=== PATIENT | female | born 1960 | race African-American/Black ===

== ENCOUNTER 2019-01-30 13:33 | Emergency (ER) ==
[2019-01-30 13:43] VITALS: BP 147/84; TEMP 97.9; BMI 24.3
--- NOTE | 2019-01-30 14:22 | CT ---
EXAM: CT of the abdomen pelvis without contrast History: Umbilical pain and swelling. Comparison: None available. Technique: Multiplanar CT images through the abdomen pelvis were obtained without the administration of IV contrast Findings: Lung bases are clear. No acute osseous abnormalities. Severe degenerative disc disease a t L5-S1. Gallbladder is not well distended. No discrete gallstones identified by CT. Long right lobe of the liver. Spleen is unremarkable. No bhavya peripancreatic inflammation. Evaluation of the pancreatic parenchyma is limited due to lack of contrast administration. Adrenal glands are unremarkable. Blad sanam is not well distended. No focal bladder wall thickening. The appendix is not well seen. There are no secondary signs of appendicitis. No evidence for bowel obstruction. No abdominal aortic aneu rysm. Evaluation for lymph nodes is limited due to the lack of contrast administration. No free air and no ascites. No renal stones and no hydronephrosis. No perinephric stranding. Small fat-contai cecy umbilical hernia measuring 1.4 cm with mild skin thickening. There is no inflammation or absces s. The uterus is not well seen. Atherosclerotic vascular calcifications. Impression: 1. No acute intra-abdominal or pelvic process identified within limitations of a noncontrast study. 2. Small fat-containing umbilical hernia with mild skin thickening. No abscess is seen. 3. Severe degenerative disc disease at L5-S1. 4. Long right lobe of the liver could represent mild hepatomegaly or a Ana's normal variant.
--- NOTE | 2019-01-30 14:52 | ED.PDOC ---
General ED Provider: Dr. OLMAN OLIVO Chief Complaint: Non-specific Complaint Stated Complaint: periumblical wound and irritation Time Seen by Physician: 13:35 (seen with teresa photos attached ) Information Source: Patient Exam Limitations: No limitations Primary Care Provider: LYDIA STANLEY Nursing and Triage Documentation Reviewed and Agree: Yes Does patient meet sepsis criteria?: No System Inflammatory Response Syndrome: Not Applicable Sepsis Protocol: For patient's 13 years and over: Temp is 96.8 and below OR 101 and greater Pulse >90 BPM Resp >20/minute Acutely Altered Mental Status Are patient's symptoms suggestive of a new infection, such as: -Pneumonia -Skin, Soft Tissue -Endocarditis -UTI -Bone, Joint Infection -Implantable Device -Acute Abdominal Infection -Wound Infection -Meningitis -Blood Stream Catheter Infection -Unknown Skin Complaint Exam - Skin/Soft Tissue Complaint/Exam Onset/Duration: weeks Symptoms Are: Still present Timing: Constant Initial Severity: Mild Current Severity: Mild Character: Reports: Redness Aggravating: Reports: None Alleviating: Reports: None Associated Signs and Symptoms: Denies: Fever, Chills, Itching, Drainage, Bruising, Tenderness, Red streaks, Joint swelling Related Surgical History: Reports: None Recent Exposure to Others w/Similar Symptoms: No Skin Findings: Present: Other (cellulitis) Differential Diagnoses: Abscess Review of Systems - Review Of Systems Constitutional: Reports: No symptoms Eyes: Reports: No symptoms Ears, Nose, Mouth, Throat: Reports: No symptoms Respiratory: Reports: No symptoms Cardiac: Reports: No symptoms GI: Reports: No symptoms : Reports: No symptoms Musculoskeletal: Reports: No symptoms Skin: Reports: Rash Neurological: Reports: No symptoms Endocrine: Reports: No symptoms Hematologic/Lymphatic: Reports: No symptoms All Other Systems: Reviewed and Negative Past Medical History - Past Medical History Previously Healthy: Yes Endocrine: Reports: None Cardiovascular: Reports: Hypertension Respiratory: Reports: None Hematological: Reports: None Gastrointestinal: Reports: None Genitourinary: Reports: None Neuro/Psych: Reports: None Musculoskeletal: Reports: None Cancer: Reports: None Last Menstrual Period: years ago - Surgical History General Surgical History: Reports: None - Family History Family History: Reports: None - Social History Smoking Status: Current every day smoker Hx Substance Use: No Alcohol Screening: Occasionally - Immunizations Tetanus Shot up to Date: Yes Physical Exam - Physical Exam Appearance: Well-appearing, No pain distress, Well-nourished Eyes: ROSE, EOMI, Conjunctiva clear ENT: Ears normal, Nose normal, Oropharynx normal Respiratory: Airway patent, Breath sounds clear, Breath sounds equal, Respirations nonlabored Cardiovascular: RRR, Pulses normal, No rub, No murmur GI/: Soft, Nontender, No masses, Bowel sounds normal, No Organomegaly Musculoskeletal: Normal strength, ROM intact, No edema, No calf tenderness Skin: Warm, Dry (rash periumblical see photo) Neurological: Sensation intact, Motor intact, Reflexes intact, Cranial nerves intact, Alert, Oriented Psychiatric: Affect appropriate, Mood appropriate Critical Care Note - Critical Care Note Total Time (mins): 0 Course - Course Hematology/Chemistry: 01/30/19 13:59 01/30/19 13:59 Orders, Labs, Meds: Lab Review 01/30/19 01/30/19 01/30/19 13:56 13:56 13:59 WBC 7.57 RBC 4.39 Hgb 12.3 Hct 38.0 MCV 86.6 MCH 28.0 MCHC 32.4 RDW Coeff of Yuri 13.2 Plt Count 331 Immature Gran % (Auto) 0.1 Neut % (Auto) 43.2 Lymph % (Auto) 44.1 Thomas % (Auto) 9.8 Eos % (Auto) 2.4 Baso % (Auto) 0.4 Immature Gran # (Auto) 0.0 Neut # (Auto) 3.3 Lymph # (Auto) 3.3 Thomas # (Auto) 0.7 Eos # (Auto) 0.2 Baso # (Auto) 0.0 Sodium Potassium Chloride Carbon Dioxide Anion Gap BUN Creatinine Estimated GFR (MDRD) BUN/Creatinine Ratio Glucose Calcium Total Bilirubin AST ALT Alkaline Phosphatase Total Protein Albumin Globulin Albumin/Globulin Ratio Urine Color Yellow Urine Clarity Slightly Urine pH 5.5 Ur Specific [place] >=1.030 Urine Protein Negative Urine Glucose (UA) Negative Urine Ketones Negative Urine Blood Negative Urine Nitrite Positive Urine Bilirubin Negative Urine Urobilinogen 0.2 Ur Leukocyte Esterase Negative Urine Microscopic WBC 0-2 Ur Squamous Epith Cells 2-5 Calcium Oxalate Crystal 1+ Urine Bacteria 2+ Urine Opiates Screen Positive Ur Oxycodone Screen Negative Urine Methadone Screen Negative Ur Propoxyphene Screen Negative Ur Barbiturates Screen Negative U Tricyclic Antidepress Negative Ur Phencyclidine Scrn Negative Ur Amphetamine Screen Positive U Methamphetamines Scrn Positive U Benzodiazepines Scrn Positive Urine Cocaine Screen Negative U Cannabinoids Screen Negative 01/30/19 13:59 WBC RBC Hgb Hct MCV MCH MCHC RDW Coeff of Yuri Plt Count Immature Gran % (Auto) Neut % (Auto) Lymph % (Auto) Thomas % (Auto) Eos % (Auto) Baso % (Auto) Immature Gran # (Auto) Neut # (Auto) Lymph # (Auto) Thomas # (Auto) Eos # (Auto) Baso # (Auto) Sodium 139.2 Potassium 3.81 Chloride 100.7 Carbon Dioxide 27.5 Anion Gap 14.81 BUN 17.8 H Creatinine 1.04 Estimated GFR (MDRD) 66.00 BUN/Creatinine Ratio 17.11 Glucose 140.6 H Calcium 9.83 Total Bilirubin 0.49 AST 61.6 H ALT 62.4 H Alkaline Phosphatase 63.8 Total Protein 8.54 H Albumin 4.85 Globulin 3.69 Albumin/Globulin Ratio 1.31 Urine Color Urine Clarity Urine pH Ur Specific [place] Urine Protein Urine Glucose (UA) Urine Ketones Urine Blood Urine Nitrite Urine Bilirubin Urine Urobilinogen Ur Leukocyte Esterase Urine Microscopic WBC Ur Squamous Epith Cells Calcium Oxalate Crystal Urine Bacteria Urine Opiates Screen Ur Oxycodone Screen Urine Methadone Screen Ur Propoxyphene Screen Ur Barbiturates Screen U Tricyclic Antidepress Ur Phencyclidine Scrn Ur Amphetamine Screen U Methamphetamines Scrn U Benzodiazepines Scrn Urine Cocaine Screen U Cannabinoids Screen Orders Category Date Time Status CBC W/ AUTO DIFF Stat LAB 01/30/19 13:51 Ordered COMPREHENSIVE METABOLIC PANEL Stat LAB 01/30/19 13:51 Ordered UA [URINALYSIS C & S IF INDICATED] Stat LAB 01/30/19 13:52 Uncollected URINE CULTURE Stat LAB 01/30/19 13:56 Received URINE DRUG SCREEN (RAPID FOR ED) [DRUG SCREEN, URINE, LAB 01/30/19 13:53 Uncollected RAPID] Stat WOUND CULTURE Stat LAB 01/30/19 14:[address] ABDOMEN/PELVIS WO CONTRAST Stat RADS 01/30/19 13:52 Ordered Vital Signs: Temp Pulse Resp BP Pulse Ox 01/30/19 13:36 97.9 F 107 H 22 147/84 H 96 Departure - Departure Time of Disposition: 14:50 Disposition: HOME SELF-CARE Discharge Problem: Abnormal liver enzymes Cellulitis Qualifiers: Site of cellulitis of trunk: abdominal wall Instructions: Cellulitis (ED) Condition: Good Pt referred to PMD for follow-up: Yes IPMP verified?: No Additional Instructions: Please call your Family Physician as soon as possible to schedule a follow-up appointment. obtain liver test from your provider a blood test has been sent to a outside lab Prescriptions: Amoxicillin 500 mg PO Q8HR #21 tablet Allergies/Adverse Reactions: Allergies No Known Allergies Allergy (Unverified 01/30/19 13:47) Home Medications: Ambulatory Orders Albuterol Sulfate [Proair Hfa] 2 puff IH Q4H PRN 01/30/19 Amoxicillin 500 mg PO Q8HR #21 tablet 01/30/19 Lisinopril 20 mg PO DAILY 01/30/19 Meloxicam 15 mg PO DAILY 01/30/19 Disposition Discussed With: Patient
== END 2019-01-30 15:19 | disposition home or self-care (01) ==
LOC: ED 13:33
DX: L03.311 Cellulitis of abdominal wall (principal); R74.9 Abnormal serum enzyme level, unspecified; F17.210 Nicotine dependence, cigarettes, uncomplicated
CPT/HCPCS: 36415; 80053; 80306; 81001; 85025; 87070; 87086; 87186; 99283